=== PATIENT | female | born 1975 | race Caucasian/White ===

== ENCOUNTER 2024-11-01 16:47 | Emergency (ER) | payer SELFPAY ==
[2024-11-01 17:10] VITALS: BP 160/137; PULSE 101; RESP 20; TEMP 36.8; O2SAT 97; BMI 44.4
[2024-11-01 17:26] VITALS: BP 170/114
--- NOTE | 2024-11-01 17:30 | EDNOTE_ITS ---
ED Female Urogenital RME/HPI General Chief complaint: Urogenital-Female Stated complaint: FEMALE ISSUES Time Seen by Provider: 11/01/24 17:31 Source: patient Arrival date/time: 11/01/24 16:47 49-year-old female with no known medical history presents to the emergency room with a chief complaint of a condom stuck in her vagina x 1 hour Mode of arrival: ambulatory Limitations: no limitations Related Data Home Medications ?Medication ?Instructions ?Recorded ?Confirmed Cyclobenzaprine * (FLEXERIL *) 5 mg PO BID #0 tabs Propranolol Hcl * (INDERAL *) 40 mg PO BID #0 tabs docusate sodium 250 mg capsule 250 mg PO BID #0 caps 0 12/21/13 (DOK) gabapentin 100 mg capsule 100 mg PO TID #0 caps ibuprofen 800 mg tablet 800 mg PO Q6HR PRN PAIN #0 t abs 12/21/13 quetiapine 400 mg tablet (Seroquel) 400 mg PO HS #0 ta bs 12/21/13 sertraline 100 mg tablet (Zoloft) 150 mg PO HS #0 tabs 12/21/13 hydroxyzine HCl 10 mg tablet 25 mg ##0 08/06/15 meloxicam 7.5 mg tablet 7.5 mg PO QDAY #0 tabs 08/06 Previous Rx's ?Medication ?Instructions ?Recorded Hydrocodone/Acetaminophen * (NORCO 1 - 2 tab PO Q4H MA N PAIN #15 tabs 01/09/16 5/325 *) Sulfamethoxazole/Trimethoprim DS * 1 tab PO BID #20 ta bs 01/09/16 (BACTRIM DS *) Allergies Allergy/AdvReac Type Severity Reaction Status Date / Time codeine Allergy Severe THROAT Verified 11/01/24 16:51 SWEMARIALUISAS BRITTNEY Review of Systems Review of Systems Systems Reviewed: All systems reviewed, normal except as documented Constitutional Constitutional: Reports system reviewed and no additional complaints, except as documented, Denies fatigue, Denies fever(s), Denies headache(s) and Denies weakness Eyes Eyes: Reports system reviewed and no additional complaints, except as documented, Denies blurry vision and Denies change in vision ENT Ears, Nose, Mouth, and Throat: Reports system reviewed and no additional complaints, except as documented, Denies otalgia, Denies headache(s), Denies nasal congestion, Denies throat swelling and Denies vertigo Cardiovascular Cardiovascular: Reports system reviewed and no additional complaints, except as documented, Denies chest pain, Denies dyspnea and Denies dyspnea on exertion Respiratory Respiratory: Reports system reviewed and no additional complaints, except as documented, Denies chest congestion, Denies cough, Denies dyspnea, Denies dyspnea on exertion and Denies wheezing Gastrointestinal Gastrointestinal: Reports system reviewed and no additional complaints, except as documented, Denies abdominal pain, Denies cramping, Denies nausea and Denies vomiting Genitourinary Genitourinary: Reports system reviewed and no additional complaints, except as documented and Reports other (Foreign body in vagina) Musculoskeletal Musculoskeletal: Reports system reviewed and no additional complaints, except as documented and Denies back pain Integumentary/Breasts Skin/Breast: Reports system reviewed and no additional complaints, except as documented and Denies wounds Neurologic Neurologic: Reports system reviewed and no additional complaints, except as documented, Denies confusion, Denies headache(s), Denies lack of coordination, Denies vertigo and Denies weakness Psychiatric Psychiatric: Reports system reviewed and no additional complaints, except as documented, Denies anxiety, Denies confusion, Denies depression, Denies paranoia, Denies suicidal ideation and Denies tactile hallucinations Endocrine Endocrine: Reports system reviewed and no additional complaints, except as documented and Denies fatigue Hematologic/Lymphatic Hematologic/Lymphatic: Reports system reviewed and no additional complaints, except as documented and Denies lymphadenopathy Allergic/Immunologic Allergic/Immunologic: Reports system reviewed and no additional complaints, except as documented, Denies throat swelling, Denies urticaria and Denies wheezing ED Exam General Limitations: Present no limitations General appearance: Present alert and in no apparent distress Head Head exam: Present atraumatic Eye Eye exam: Present normal appearance, PERRL and EOMI ENT ENT exam: Present normal exam, normal oropharynx and mucous membranes moist Neck Neck exam: Present normal inspection, full ROM and trachea midline Chest Chest inspection: Present normal inspection and symmetric chest wall rise Respiratory Respiratory exam: Present normal lung sounds bilaterally Cardiovascular Cardiovascular exam: Present regular rate, normal rhythm and normal heart sounds Abdominal Exam Abdominal exam: Present soft and normal bowel sounds Speculum exam: Present foreign body (Condom) Extremities Exam Extremities exam: Present normal inspection and full ROM Back Exam Back exam: Present normal inspection and full ROM Neurological Exam Neurological exam: Present alert, oriented X3 and CN II-XII intact Psychiatric Psychiatric exam: Present normal affect and normal mood Skin Skin exam: Present warm, dry, intact and normal color Course Quality Measures none Vital Signs Vital signs: Vital Signs Temperature 98.2 F 11/01/24 17:10 Pulse Rate 101 H 11/01/24 17:10 Respiratory Rate 20 11/01/24 17:10 Blood Pressure 160/137 H 11/01/24 17:10 Pulse Oximetry (%) 97 11/01/24 17:10 Oxygen Delivery Method Room Air 11/01/24 17:10 O2 saturation 97% within normal limits Urogenital - Female MDM Narrative MDM Narrative:: 49-year-old female with no known medical history presents to the emergency room with a chief complaint of a condom stuck in her vagina x 1 hour Patient is hemodynamically stable and in no apparent distress. Patient's blood pressure is elevated at 160/137. Patient states she has not took her blood pressure medication and she is also very anxious due to the condom inside her vagina. Physical examination was completed with a speculum exam. I was able to find the condom and remove it with no complications. I spoke to the patient and told her that her blood pressure was elevated in the we would like to bring it down before discharge. Patient states she just wants to go home and she states that her blood pressure is high because of all her stress. I spoke to her and told her that she will need to follow-up with her primary care provider for further blood pressure management Patient was discharged and educated to follow-up with primary care provider in the next 24 to 48 hours and return to the emergency room for any evidence of worsening signs or symptoms Patient data External records reviewed:: [facility] previous records Clinical information provided by:: patient Social determinants that could affect healthcare access:: none Patient has the following chronic illnesses:: No chronic illness How is presenting disease/condition affected by chronic disease/condition?: no chronic disease Evaluation data The following diagnostics were reviewed and interpreted by me:: lab results and radiology exam(s) Lab and/or radiology exams considered but not ordered:: Labs and radiology exams considered in order Interpretation Summary: N/A Medications / Prescriptions Medications or Prescriptions considered but not ordered:: No medication given Medication administrations:: No medication given Consultations Consultation(s) initiated? (list below): No Diagnosis Urogenital Female Differential Diagnosis: urinary tract infection and other (Foreign body in vagina) Most likely diagnosis given after review of the tests above:: Foreign body in vagina Admission Indicated Admission indicated?: not indicated Admission Request Was there a request for admission?: No Disposition Plan Disposition Plan: Discharge Discharge Attestation Discharge Attestation: The patient and all family members were given an opportunity to ask questions and understood the discharge instructions. Discharge instructions specifically effects, indications for sooner follow up or return to the emergency department, and the expected course of current diagnosis. Patient condition: Stable Discharge Plan Plan Patient Disposition: HOME (Self Care) Disposition Comment: Stable Prescriptions/Referrals Prescriptions/Med Rec: No Action ibuprofen 800 MG tablet 800 mg PO Q6HR PRN (Reason: PAIN) Qty: 0 sertraline [Zoloft] 100 MG tablet 150 mg PO HS Qty: 0 gabapentin 100 MG capsule 100 mg PO TID Qty: 0 docusate sodium [DOK] 250 MG capsule 250 mg PO BID Qty: 0 quetiapine [Seroquel] 400 MG tablet 400 mg PO HS Qty: 0 Cyclobenzaprine * (FLEXERIL *) 5 MG tablet 5 mg PO BID Qty: 0 Propranolol Hcl * (INDERAL *) 20 MG tablet 40 mg PO BID Qty: 0 meloxicam 7.5 MG tablet 7.5 mg PO QDAY Qty: 0 hydroxyzine HCl 10 MG tablet 25 mg Qty: 0 Sulfamethoxazole/Trimethoprim DS * (BACTRIM DS *) 1 TAB tablet 1 tab PO BID Qty: 20 0RF Hydrocodone/Acetaminophen * (NORCO 5/325 *) 1 TAB tablet 1 - 2 tab PO Q4H PRN (Reason: PAIN) Qty: 15 0RF Rx Instructions: FOR PAIN Problem List Clinical Impression: Foreign body in vagina Patient/Caregiver Discharge Instructions Education Materials: ED FOREIGN BODY Vaginal Adult Additional Instructions: Please follow-up with your primary care provider in the next 24 to 48 hours. Your blood pressure was elevated during your visit. Please follow-up with your primary care provider for further management of your blood pressure. For any evidence of worsening signs or symptoms return to the emergency room immediately Print Language: Mohawk Stand Alone Forms: Nieves Award Info., Patient Portal Info Letter PA/[employer] MAINTENA[employer]CE WORKER Supervising Physician PA/JUAN MIGUEL Supervising Physician: Dr. Varghese
== END 2024-11-01 17:48 | disposition home or self-care (01) ==
LOC: SERX 17:44
PROVIDERS: Emergency Provider Family Medicine
DX: T19.2XXA Foreign body in vulva and vagina, initial encounter (principal); W44.8XXA Other foreign body entering into or through a natural orifice, initial encounter
CPT/HCPCS: 99283